=== PATIENT | female | born 1985 | race Caucasian/White ===

== ENCOUNTER 2022-11-18 19:31 | Emergency (ER) | payer MEDICAID ==
[~2022-11-18] VITALS: Ht 170.2 cm; Wt 61.4 kg
[2022-11-18 19:46] VITALS: TEMP 98.2
[2022-11-18 21:03] VITALS: BP 112/65; PULSE 62; RESP 18
[2022-11-18] MEDS ORDERED: TOBRAMYCIN/DEXAMETHASONE 5 ML OPHTHALMIC SUSPENSION OD ONE (22:00)
[2022-11-18] MEDS ORDERED: FLUORESCEIN SODIUM 1 MG STRIP OD ONE (22:00)
== END 2022-11-18 22:35 | disposition home or self-care (01) ==
LOC: EMS 19:31
DX: S05.01XA Injury of conjunctiva and corneal abrasion without foreign body, right eye, initial encounter (principal); Z88.0 Allergy status to penicillin; Z98.890 Other specified postprocedural states; X58.XXXA Exposure to other specified factors, initial encounter; Y93.89 Activity, other specified; Y92.89 Other specified places as the place of occurrence of the external cause; Y99.8 Other external cause status
CPT/HCPCS: 99283